=== PATIENT | male | born 1995 | race Caucasian/White ===

== ENCOUNTER 2021-05-31 18:57 | Emergency (ER) | payer OTHER ==
[~2021-05-31] VITALS: Ht 172.7 cm; Wt 67.7 kg
[2021-05-31 19:10] VITALS: BP 137/81
--- NOTE | 2021-05-31 19:23 | PHYS DOC ---
Adult General Chief Complaint Chief Complaint: SHOULDER INJURY HPI HPI Patient is a otherwise healthy 25-year-old male who presents with left shoulder pain for the last 11 days, 7 out of 10, dull and achy in nature which he believes happened after helping a friend lift a desk. Denies any recent travels, traumas, illnesses, fevers. Denies any numbness/weakness/tingling, decreased ability to use his arm. States he has not taken any medications for this or used ice. Review of Systems Review of Systems Review of systems otherwise unremarkable except noted in HPI Allergies Allergies Allergies Coded Allergies Type Severity Reaction Last Updated Verified No Known Drug Allergies 05/31/21 No Physical Exam Physical Exam Constitutional: Well developed, well nourished, no acute distress, non-toxic appearance. [] HENT: Normocephalic, atraumatic, Eyes: conjunctiva normal, no discharge. [] Neck: Normal range of motion, no tenderness, Cardiovascular:Heart rate regular rhythm, no murmur [] Lungs & Thorax: Bilateral breath sounds clear to auscultation [] Back: No tenderness, Extremities: Neurovascular exam intact, No Obvious Bruising, Deformities, generalized tenderness around shoulder with active and passive range of motion and palpation Neurologic: Alert and oriented X 3, normal motor function, normal sensory function, no focal deficits noted. [] Psychologic: Affect normal, judgement normal, mood normal. [] EKG EKG [] Radiology/Procedures Radiology/Procedures [] Heart Score C/O Chest Pain: No Risk Factors: Risk Factors: DM, Current or recent (<one month) smoker, HTN, HLP, family history of CAD, obesity. Risk Scores: Risk Factors: DM, Current or recent (<one month) smoker, HTN, HLP, family history of CAD, obesity. Course & Med Decision Making Course & Med Decision Making Patient is a 25-year-old male who presents with left shoulder pain for 11 days Vital signs not concerning. Physical exam noted above. Given Tylenol, ibuprofen and ice pack Imaging with no acute osseous abnormalities. Discussed findings with patient. Discussed symptom control at home. Advised to follow-up with his primary care physician to discuss need for MRI. Gave return precautions to the ED. Patient grateful, verbalized understanding and agreed with plan of discharge. Dragon Disclaimer Dragon Disclaimer This electronic medical record was generated, in whole or in part, using a voice recognition dictation system. Departure Departure: Impression: Primary Impression: Shoulder pain Disposition: HOME / SELF CARE / HOMELESS Condition: GOOD Referrals: PCP,NO (PCP) CHAYO ESTES MD Patient Instructions: RICE - Routine Care for Injuries, Shoulder Pain Additional Instructions: Thank you for coming into the emergency department tonight and allowing us to take care of you. Please read the attached information carefully to go back over things we discussed. Please be sure to start a Tylenol, ibuprofen and ice regimen as tolerated as long as you are not allergic for symptoms at home. Please follow-up with your primary care physician to discuss your ED visit and need for further imaging such as MRI to evaluate for soft tissue injury. Please come back with new or concerning symptoms as discussed. SHUBHAM MARR MD May 31, 2021 19:23
[2021-05-31] MEDS ORDERED: IBUPROFEN 600 MG TABLET. PO ONE (19:30)
[2021-05-31] MEDS ORDERED: ACETAMINOPHEN 500 MG TABLET PO ONE (19:30)
--- NOTE | 2021-05-31 20:34 | RAD ---
Study: XR SHOULDER_LEFT 2+ VIEWS Indication: Injury. Left shoulder pain. Comparison: None. Findings: Alignment is anatomic. No acute fracture. Maintained acromiohumeral interval. No significant arthrosi s. The partially assessed left ribs are grossly intact. Impression: No fracture or malalignment at the left shoulder. Electronically signed by: JORI NEELY MD (05/31/2021 8:32 PM) [facility]
== END 2021-05-31 21:02 | disposition home or self-care (01) ==
LOC: ER 18:57
DX: M25.512 Pain in left shoulder (principal)
CPT/HCPCS: 73030; 99283